=== PATIENT | male | born 1945 ===

== ENCOUNTER 2021-03-15 18:39 | Emergency (ER) | payer MEDICARE, OTHER ==
[~2021-03-15] VITALS: Ht 177.8 cm; Wt 83.0 kg
[2021-03-15] MEDS ORDERED: IV NORMAL SALINE 1000 ML BAG IV ONE (19:15)
[2021-03-15 19:34] LABS: HEMATOCRIT 35.8 % (36.7-47.1); MEAN CORPUSCULAR HEMOGLOBIN 26.1 uug (23.8-33.4); MEAN CORPUSCULAR VOLUME 79.7 fL (73.0-96.2); PLATELET COUNT (AUTO) 206 K/uL (152-348)
[2021-03-15 19:43] LABS: CREATININE 1.1 mg/dL (0.6-1.3); POTASSIUM 3.8 mmol/L (3.5-5.1)
[2021-03-15 20:02] LABS: EOSINOPHILS % (MANUAL) 2 % (0-8); LYMPHOCYTES % (MANUAL) 40 % (20-40); MONOCYTES % (MANUAL) 10 % (2-10); NEUTROPHILS % (MANUAL) 48 % (42-75)
[2021-03-15] MEDS ORDERED: ALBUTEROL SULFATE 2.5 MG/3 ML NEBU NEB ONE (20:15)
[2021-03-15] MEDS ORDERED: ONDANSETRON 4 MG/2 ML VIAL IV ONE (20:15)
[2021-03-15] MEDS ORDERED: IPRATROPIUM BROMIDE 0.5 MG/2.5 ML NEBU NEB ONE (20:15)
[2021-03-15] MEDS ORDERED: MORPHINE SULFATE 2 MG/1 ML DISP.SYRIN IV ONE (20:15)
[2021-03-15 20:16] LABS: BILIRUBIN,DIRECT 0.2 mg/dL (0.0-0.2); BILIRUBIN,TOTAL 0.7 mg/dL (0.2-1.0); TOTAL PROTEIN, SERUM 7.8 g/dL (6.4-8.2)
[2021-03-15] MEDS ORDERED: IPRATROPIUM BROMIDE 0.5 MG/2.5 ML NEBU ONE (20:17)
[2021-03-15] MEDS ORDERED: ALBUTEROL SULFATE 2.5 MG/ 0.5 ML NEBU ONE (20:18)
[2021-03-15] MEDS ORDERED: MORPHINE SULFATE 2 MG/1 ML DISP.SYRIN ONE (20:22)
[2021-03-15] MEDS ORDERED: ONDANSETRON 4 MG/2 ML VIAL ONE (20:22)
--- NOTE | 2021-03-15 21:15 | NUR ---
Dr. Aalniz speaking with Dr. Ceballos of [facility].
--- NOTE | 2021-03-15 21:19 | NUR ---
DR KIMBALL AT BEDSIDE TALKING WITH PATIENT AND FAMILY REGARDING TEST RESULTS.
--- NOTE | 2021-03-15 22:16 | NUR ---
Patient does not wish to proceed with medical care recommended by Dr. KIMBALL. Patient given information related to possible complications, up to and including , which could occur as a result of leaving the hospital at this time. Patient verbalizes understanding of risks involved due to leaving against medical advice. Patient/RANDAL has signed AMA form.
== END 2021-03-15 22:15 | disposition left against medical advice (07) ==
LOC: ER 18:43
DX: K56.609 Unspecified intestinal obstruction, unspecified as to partial versus complete obstruction (principal); D72.819 Decreased white blood cell count, unspecified; E87.1 Hypo-osmolality and hyponatremia; Z20.822 Contact with and (suspected) exposure to COVID-19; Z53.29 Procedure and treatment not carried out because of patient's decision for other reasons; C18.9 Malignant neoplasm of colon, unspecified; Z79.899 Other long term (current) drug therapy; D64.9 Anemia, unspecified; Z87.891 Personal history of nicotine dependence; J98.11 Atelectasis
CPT/HCPCS: 36415; 71045; 74176; 80048; 80076; 83605; 83690; 83880; 84484; 85007; 85025; 87426; 93005; 94640; 96361; 96374; 96375; 99285; J2270; J2405; 70030-TC; A4663; J3590; J7030